=== PATIENT | female | born 1940 | race African-American/Black ===

== ENCOUNTER 2017-08-08 02:05 | Observation (INO) | payer MEDICARE, MEDICAID ==
[2017-08-08] MEDS ORDERED: CEFAZOLIN 1 GM in Sodium Chloride 0.9% 100 ML IVPB SCH (04:45)
[2017-08-08 05:10] LABS: #Eosinphils 0.1 thou/uL (0.0-0.7); #Lymphocytes 2.9 thou/uL (1.20-3.40); #Monocytes 0.6 thou/uL (0.11-0.59); #Neutrophils 6.2 thou/uL (1.40-6.50); %Basophils 0.4 % (0.0-1.0); %Lymphocytes 28.9 % (21.0-51.0); %Monocytes 6.4 % (0.0-10.0); %Neutrophils 63.2 % (42.0-75.0); Mean Corpuscular HGB CONC 30.9 g/dL (32.0-36.0); Mean Corpuscular Hemoglobin 25.8 pg (27.0-31.0); Mean Corpuscular Volume 83.6 fL (78.0-98.0); Mean Platelet Volume 7.5 fL (7.4-10.4); Platelet Count 255 thou/uL (130-400); RBC Distribution Width 15.2 % (11.5-14.5); Red Blood Cell (RBC) Count 3.47 mill/uL (4.20-5.40); White Blood Cell (WBC) Count 9.9 thou/uL (4.8-10.8)
[2017-08-08 05:18] LABS: Bilirubin Negative (Negative); Blood, Urine Small (Negative); Clarity TURBID (Clear); Glucose, Urine (Dipstick) Negative (Negative); Leukocyte Large (Negative); Nitrite Negative (Negative); Protein, Urine (Dipstick) Negative (Neg-Trace); Specific Gravity, Urine 1.023 (1.002-1.036); Urobilinogen 0.2 mg/dL (0.2-1.0)
[2017-08-08 05:21] LABS: Bacteria/HPF 2+ HPF (None Seen); Pathc Cast-AUWi Flag 1.74 (0-2.49); Squamous Epithelial 0-3 HPF (0-3); Yeast-AUWi Flag 40.9 (0-25.0)
[2017-08-08 05:31] LABS: ALT (SGPT) Less than 7 U/L (8-55); AST (SGOT) 10 U/L (5-34); Albumin 3.2 g/dL (3.4-4.8); Alkaline Phosphatase 73 U/L (40-150); Anion Gap 12 mmol/L (10-20); BUN (Urea Nitrogen) 46 mg/dL (9.8-20.1); Bilirubin, Total 0.4 mg/dL (0.2-1.2); Calc. Creatinine Clearance 0 mL/min (70-130); Calcium 9.2 mg/dL (7.8-10.44); Carbon Dioxide 32 mmol/L (23-31); Chloride 99 mmol/L (98-107); Estimated GFR-MDRD 51; Globulin 4.1 g/dL (2.4-3.5); Glucose 92 mg/dL (83-110); Potassium 3.9 mmol/L (3.5-5.1); Protein, Total 7.3 g/dL (6.0-8.3); Sodium 139 mmol/L (136-145)
[2017-08-08 05:34] LABS: Transitional Epithelial 0-3 HPF (0-3); Trichomonas/HPF None Seen HPF (None Seen); Yeast-All Forms None Seen HPF (None Seen)
[2017-08-08 05:35] LABS: Hyaline Casts/LPF NONE SEEN LPF (0-3 Hyaline)
[2017-08-08] MEDS ORDERED: Ondansetron ODT 4 MG TAB SL PRN (06:14)
[2017-08-08] MEDS ORDERED: Ondansetron HCl/PF 4 MG/2 ML Vial IVP PRN (06:14)
[2017-08-08] MEDS ORDERED: Acetaminophen 325 MG TAB PO PRN ×2 (06:14→10:50)
[2017-08-08] MEDS ORDERED: Sodium Chloride 0.9% 1,000 ML IV SCH (06:14)
[2017-08-08 06:32] VITALS: BMI 38.4
[2017-08-08] MEDS ORDERED: Dextrose 50% Abboject 50 ML SYRINGE SLOW IVP PRN (10:50)
[2017-08-08] MEDS ORDERED: HumaLOG 300 UNITS/3 ML VIAL SC PRN ×2 (10:50)
[2017-08-08] MEDS ORDERED: Dextrose 5% in Water 1,000 ML IV PRN (10:50)
--- NOTE | 2017-08-08 10:55 | ULT ---
PRELIMINARY REPORT/[facility]/EMERGENCY AFTER HOURS PROCEDURE: EXAM: US Pelvis Complete, Transabdominal CLINICAL HISTORY: 76 years old, female; Abnormal findings; Abnormal imaging test; Prior surgery; Surgery date: 6+ month s; Surgery type: x 2 "many years ago" TECHNIQUE: Real-time transabdominal pelvic ultrasound (complete) with image documentation. Patient declined garcia svaginal ultrasound. COMPARISON: No relevant prior studies available. FINDINGS: Uterus/cervix: Endometrial mass measuring up to 2.1 cm. Mild endometrial fluid. Right ovary: Right paraovarian cyst measuring up 3.1 cm. Unremarkable right ovary. Left ovary: Unremarkable. No mass. Free fluid: No significant free fluid. IMPRESSION: Endometrial mass; recommend gynecology consult. Right paraovarian cyst. Thank you for allowing us to participate in the care of your patient. Dictated and Authenticated by: Juan J Mathis MD 08/08/2017 6:24 AM Central Time ([place] & [place]) FINAL REPORT PELVIC ULTRASOUND: Date: 08/08/17 Transabdominal ultrasound of pelvis performed. INDICATION: 76-year-old female with abnormal imaging findings. Abnormal findings on CT, apparently an outside exa m as there are no CTs available at this institution. No further history given. FINDINGS/IMPRESSION: There is an endometrial echogenic mass-like area noted on ultrasound measuring up to 2.0 cm. Endometr ial sampling is recommended with [facility] consultation. I am in agreement with the preliminary report issued by Jose C. POS: JAYNE
--- NOTE | 2017-08-08 10:56 | ULT ---
PRELIMINARY REPORT/[facility]/EMERGENCY AFTER HOURS PROCEDURE: EXAM: US Abdomen Complete CLINICAL HISTORY: 76 years old, female; Abnormal findings; Abnormal radiologic finding of the abdomen; Radiologic exam and body structure: Dilated cbd and hydro seen on CT; Prior surgery; Surgery date: 6+ months; Surgery type: Gb removed TECHNIQUE: Real-time ultrasound of the abdomen (complete) with image documentation. COMPARISON: No relevant prior studies available. FINDINGS: Liver: No mass. Gallbladder: Status post cholecystectomy with mild central biliary dilation. Common bile duct: Mildly dilated. Pancreas: Limited visualization due to bowel gas. Unremarkable as visualized. Kidneys: Moderate right hydronephrosis. No renal stones. No solid mass. No left hydronephrosis. Bilateral ureteral jets visualized. Spleen: No acute findings. No splenomegaly. Aorta: No aneurysm. Inferior vena cava: Unremarkable. IMPRESSION: Right hydronephrosis. Thank you for allowing us to participate in the care of your patient. Dictated and Authenticated by: Juan J Mathis MD 08/08/2017 6:20 AM Central Time ([place] & [place]) FINAL REPORT ABDOMINAL ULTRASOUND: Date: 08/08/17 HISTORY: Abdominal pain. Apparently an abnormality was seen on outside CT. FINDINGS: Patient is post cholecystectomy. Moderate right hydronephrosis. Urinary bladder is mildly distended. Ureteral jets were described. I am in agreement with the preliminary report issued by Jose C. POS: VELMA
[2017-08-08 12:15] VITALS: BP 155/70; TEMP 98.1
[2017-08-08] MEDS ORDERED: cefTRIAXone\\ROCEPHIN 1 GM in Sodium Chloride 0.9% 100 ML IVPB SCH (14:00)
--- NOTE | 2017-08-08 16:07 | CON ---
DATE OF CONSULTATION: 08/08/2017 REASON FOR CONSULTATION: Right-sided hydronephrosis. HISTORY OF PRESENT ILLNESS: Mr. Joseph is a 76-year-old female admitted to [facility] after transfer from an outside facility. She went to the outside facility for acute onset right-sided flank and abdominal pain. She underwent imaging studies at the outside facility including a CT scan. On CT scan, she was noted to have right hydronephrosis without hydroureter without stone. Findings consistent with UPJ obstruction. She is also noted to have a dilated common bile duct measuring 1.8 cm, endometrial thickening, a 2.8 cm right adnexal lesion consistent with cyst and some thickening of the ascending and proximal transverse colon. She was transferred to [facility]. On arrival here, she was completely asymptomatic. At the time of evaluation by me, she was asymptomatic. She denies any fevers or chills. Denies any gross hematuria. Admission urinalysis did demonstrate some bacteria in the urine. Most recent significant medical history is that of respiratory failure, admitted to a [facility] in 05/2017. She had no urinary tract imaging at that time. She denies any prior urologic history. PAST MEDICAL HISTORY: Hypertension, diabetes, osteoarthritis, chronic anemia. ALLERGIES: CODEINE and PENICILLINS. SOCIAL HISTORY: Nonsmoker, denies excessive alcohol use. HOME MEDICATIONS: Lasix, glimepiride, iron, Coreg, insulin, metformin, Diovan HCT. REVIEW OF SYSTEMS: Respiratory: Denies any shortness of breath. Cardiovascular: Denies chest pain or palpitations. Gastrointestinal: Denies chronic constipation or diarrhea. Genitourinary: Denies dysuria or gross hematuria. PHYSICAL EXAMINATION: GENERAL: She is awake and alert. She is in no distress at this time. VITAL SIGNS: Temperature 98.4, blood pressure 138/82, pulse 82, respiratory rate 16. HEENT: normocephalic, atraumatic Neck : supple, no masses CHEST: Clear to auscultation. CV: no murmurs ABDOMEN: Obese, soft, nontender, no palpable masses. No peritoneal signs or flank tenderness. EXTREMITIES: bilateral edema with skin changes consistent with long standing edema. CT scan right-sided hydronephrosis consistent with UPJ obstruction. Ultrasound was performed at [facility] demonstrates a ureteral jet on both the left and the right side further confirming the nonobstructive nature. She is asymptomatic at this time and because of the lack of symptoms and confirmation of a good ureteral jet on the right side, I have not recommended endoscopic evaluation or further imaging by a nuclear medicine renal scan. I discussed this with the daughter. I do believe she should undergo further evaluation by nuclear medicine renal scan as an outpatient. She was also noted to have a 2 cm intrauterine mass on pelvic ultrasound performed at [facility] and for that she does need additional workup. RECOMMENDATIONS: 1. No intervention recommended at this time. Outpatiient follow up with nuclear medicine renal scan and or cystoscopy with retrograde pyelography. 2. [facility] evaluation for uterine mass MTDD
--- NOTE | 2017-08-08 18:45 | HP ---
SAME DAY Observation ADMIT AND DISCHARGE SUMMARY REASON FOR ADMISSION: Abdominal pain and dizziness. HISTORY OF PRESENT ILLNESS: Please note majority of this history is obtained by talking to ER physician and patient's daughter, Ms. Sandoval, as patient is not fully oriented. The patient does not recall the reason for coming to the hospital. She knows she is in the hospital, but feels good now. Currently, she has no complaints of abdominal pain. Per family, she had right lower back and abdominal pain along with dizziness, which started late in the night. No complaints of cough or expectoration. No complaints of fever. Has no trouble passing urine. The patient initially was taken to [facility] in [place]. She had preliminary workup done there including a CT of the abdomen and pelvis, which revealed moderate hydronephrosis on the right, this was a CAT scan with contrast. She was also found to have had endometrial mass and right adnexal cyst of 3 cm on the ultrasound that was done here. PAST MEDICAL/SURGICAL HISTORY: Hypertension, cholecystectomy, x2, likely chronic kidney disease, likely chronic anemia, possible underlying dementia. CURRENT MEDICATIONS: The patient is on Coreg 25 mg twice daily, ferrous sulfate 325 mg daily, glimepiride 4 mg daily, Tresiba 20 units subcu at bedtime , metformin 500 mg p.o. twice daily, MiraLax 17 grams daily, torsemide 20 mg daily, valsartan with hydrochlorothiazide 320/25 mg daily. ALLERGIES: CODEINE. PERSONAL HISTORY: Does not abuse alcohol or drugs. No history of smoking. FAMILY HISTORY: Cannot be obtained as patient is not fully oriented. REVIEW OF SYSTEMS: Cannot be accurately obtained as patient is not cognitively intact. PHYSICAL EXAMINATION: GENERAL: The patient is a 76-year-old female who is currently not in any acute distress. VITAL SIGNS: Blood pressure 176/74 on arrival, pulse 70 per minute, respiratory rate 16 per minute, temperature 97.9 degrees Fahrenheit, saturating 97% on room air. NECK: Supple, no elevated JVD. HEENT: Eyes: Extraocular muscles intact. Pupils reacting to light. Oral cavity: Mucous membranes are moist. No exudates or congestion. CARDIOVASCULAR: S1, S2 heard. Regular rhythm. RESPIRATORY: Air entry 1+ bilaterally. No rales or rhonchi. ABDOMEN: Soft, bowel sounds heard. No tenderness, rigidity or guarding. No CVA angle tenderness at present. EXTREMITIES: No peripheral edema or calf tenderness. VASCULAR: Peripheral pulses 1+ bilateral. No ischemic ulcerations or gangrene. CENTRAL NERVOUS SYSTEM: No gross focal deficits seen. The patient is awake and follows verbal questions. PSYCHIATRIC: The patient's mood is a bit anxious, otherwise no hallucinations or delusions. LABORATORY AND X-RAY FINDINGS: White count of 9, H&H 9 and 29, platelet count 255 with MCV of 83 and 63% neutrophils. Electrolytes are stable. Serum bicarbonate 32, BUN 46, creatinine 1.24, glucose 92. Liver enzymes within normal limits. Albumin is 3.2. UA shows large leukoesterase, 11-20 rbc's, greater than 50 wbc's and 2+ bacteria. Ultrasound pelvis complete done shows endometrial mass measuring 2.1 cm. There is a right paraovarian cyst measuring 3.1 cm, right ovary was unremarkable. Left ovary was unremarkable. No mass seen in the left side. Ultrasound of the abdomen done showed right hydronephrosis, prior cholecystectomy. The patient has had a CT of the abdomen and pelvis done at [facility], report shows findings of moderate dilation of right renal pelvis and ureters with abrupt tapering of the ureteropelvic junction. No evidence of superimposed urolithiasis. Common bile duct was 1.8 cm large, duodenal diverticulum was seen. Probable endometrial thickening concerning for hyperplasia or malignancy. A superimposed calcified uterine leiomyoma, indeterminate cystic right adnexal lesion measuring up to 2.8 cm. CLINICAL IMPRESSION AND PLAN: The patient was initially placed under observation for right moderate hydronephrosis with urinary tract infection and adnexal mass. She was evaluated by Dr. Sher, urologist on-call. Likely the patient's right moderate hydronephrosis has been there chronically. There was no obstructive uropathy. I have discussed her lab findings with her daughter over telephone and the need for outpatient [facility] appointment for the uterine mass and the right adnexal mass. Ms. Sandoval, the patient's daughter, will try to obtain outpatient appointment at [facility] or in and around [place] where they live. She has been placed on ciprofloxacin for suspected urinary tract infection. Cultures have been obtained and the primary care physician to follow up with culture results. She is hemodynamically stable now with no abdominal pain, dizziness or headache. In fact, the patient is wanting to go home at present. The family is willing to come take her home. LYDIA
[2017-08-08] MEDS ORDERED: Famotidine 20 MG TAB PO SCH (21:00)
[2017-08-08] MEDS ORDERED: Insulin Glargine 20 UNITS in Pre-Filled Syringe 1 EACH SC SCH (21:00)
[2017-08-08] MEDS ORDERED: Carvedilol 25 MG TAB PO SCH (21:00)
[2017-08-08] MEDS ORDERED: Non-Formulary Item 1 EACH (Insulin Degludec [Tresiba Flextouch U-200] 20 UNIT) SQ SCH (21:00)
[2017-08-09] MEDS ORDERED: Ferrous Sulfate 325 MG TAB PO SCH (08:00)
[2017-08-09] MEDS ORDERED: Glimepiride 4 MG TAB PO SCH (08:00)
[2017-08-09] MEDS ORDERED: Enoxaparin Sodium 40 MG/0.4 ML SYRINGE SC SCH (09:00)
[2017-08-09] MEDS ORDERED: Prevnar 13-Val Conj/PF 0.5 ML SYRINGE IM ONE (09:00)
== END 2017-08-08 14:05 | disposition home or self-care (01) ==
LOC: ERS 02:05 → ONC 05:50
PROVIDERS: ADMIT Internal Medicine; ATTEND Internal Medicine
DX: N13.6 Pyonephrosis (principal); E11.22 Type 2 diabetes mellitus with diabetic chronic kidney disease; I12.9 Hypertensive chronic kidney disease with stage 1 through stage 4 chronic kidney disease, or unspecified chronic kidney disease; N18.9 Chronic kidney disease, unspecified; M19.90 Unspecified osteoarthritis, unspecified site; D64.9 Anemia, unspecified; Z79.84 Long term (current) use of oral hypoglycemic drugs; Z79.899 Other long term (current) drug therapy; Z88.5 Allergy status to narcotic agent; Z88.0 Allergy status to penicillin
CPT/HCPCS: 76700; 76857; 80053; 82962; 85025; 87086; 96365; 96367; 97139; 99285; G0378; 36415; 36416; 81003; 81015; J0690; J0744; J7050